=== PATIENT | male | born 1960 | race Hispanic/Latino ===

== ENCOUNTER 2016-08-31 12:56 | Emergency (ER) | payer SELFPAY ==
[2016-08-31 13:23] VITALS: TEMP 98.2
[2016-08-31 14:00] VITALS: BMI 24.3
[2016-08-31] MEDS ORDERED: Morphine 4 mg/ml ISec IVP STA (14:24)
[2016-08-31 15:25] LABS: ADD MANUAL DIFF? NO
--- NOTE | 2016-08-31 15:28 | RAD ---
HISTORY: cough COMPARISON: No prior. FINDINGS: LUNGS: No active pulmonary disease. PLEURA: No significant pleural effusion identified, no pneumothorax apparent. CARDIOVASCULAR: Normal. OSSEOUS STRUCTURES: No significant abnormalities. VISUALIZED UPPER ABDOMEN: Normal. OTHER FINDINGS: None. IMPRESSION: No active disease.
[2016-08-31 15:38] LABS: BASO # 0.04 K/mm3 (0.0-2.0); BASO % 0.8 % (0.0-3.0); EOS # 0.1 (0.0-0.7); EOS % 1.1 % (1.5-5.0); GRAN # 3.13 (1.4-6.5); GRAN % 59.2 % (50.0-68.0); HEMATOCRIT 41.8 % (42.0-52.0); LYMPH # 1.8 (1.2-3.4); LYMPH % 33.6 % (22.0-35.0); MEAN CELL VOLUME 106.9 fL (80.0-105.0); MEAN CORPUSCULAR HEMOGLOBIN 37.3 pg (25.0-35.0); MEAN CORPUSCULAR HGB CONC 34.9 g/dl (31.0-37.0); MEAN PLATELET VOLUME 9.7 fl (7.0-11.0); MONO # 0.3 (0.1-0.6); MONO % 5.3 % (1.0-6.0); PLATELET COUNT 139 10^3/uL (120.0-450.0); RED CELL DISTRIBUTION WIDTH 14.6 % (11.5-14.5); WHITE BLOOD COUNT 5.3 10^3/ul (4.5-11.0)
[2016-08-31 15:50] LABS: ALB/GLOB RATIO 1.2 (1.1-1.8); ALKALINE PHOSPHATASE 115 U/L (38-133); ALT/SGPT 42 U/L (7-56); AST/SGOT 37 U/L (15-59); BILIRUBIN,TOTAL 0.8 mg/dL (0.2-1.3); BLOOD UREA NITROGEN 12 mg/dL (7-21); CALCIUM 9.1 mg/dL (8.4-10.5); CARBON DIOXIDE 29 mmol/L (21-33); CHLORIDE 102 mmol/L (98-107); GFR AFRICAN-AMERICAN > 60; GLUCOSE,RANDOM 97 mg/dL (70-110); MAGNESIUM 2.4 mg/dL (1.7-2.2); SODIUM 143 mmol/L (132-148); TOTAL PROTEIN 7.7 g/dL (5.8-8.3)
[2016-08-31 16:14] LABS: TROPONIN I < 0.01 ng/mL
--- NOTE | 2016-08-31 16:46 | ED PDOC ---
Arrival/HPI - General Chief Complaint: Back Pain Time Seen by Provider: 08/31/16 13:14 Historian: Patient - History of Present Illness Narrative History of Present Illness (Text): 08/31/16 18:28 56 year old male with a past medical history that includes chronic back pain, herniated discs, presents with sudden onset of shooting pain from his left back radiating to his left chest while at work that "took his breath away." No fever , cough, shortness of breath at this time. No bowel or urinary dysfunction. No saddle anesthesia. Time/Duration: 24 hours Symptom Onset: Sudden Symptom Course: Unchanged Modifying Factors (Text): None Associated Symptoms (Text): None Past Medical History - Provider Review Nursing Documentation Reviewed: Yes - Infectious Disease Hx of Infectious Diseases: None - Tetanus Immunization Tetanus Immunization: Up to Date - Cardiac Hx Hypertension: Yes - Musculoskeletal/Rheumatological Hx Back Pain: Yes Hx Gout: Yes - Psychiatric Hx Depression: No Hx Emotional Abuse: No Hx Physical Abuse: No Hx Substance Use: No - Surgical History Other/Comment: rt knee surgery - Anesthesia Hx Anesthesia: Yes Hx Anesthesia Reactions: No Hx Malignant Hyperthermia: No - Suicidal Assessment Feels Threatened In Home Enviroment: No Family/Social History - Physician Review Nursing Documentation Reviewed: Yes Family/Social History: Unknown Family HX Smoking Status: Heavy Smoker > 10 Cigarettes Daily Hx Alcohol Use: Yes Hx Substance Use: No Hx Substance Use Treatment: No Allergies/Home Meds Allergies/Adverse Reactions: Allergies No Known Allergies Allergy (Verified 11/14/11 13:20) Home Medications: Home Meds Medication Instructions Recorded Confirmed Acetaminophen/Oxycodone Hydr 1 tab PO PRN 11/14/11 05/15/14 [APAP/Oxycodone 325 mg-5 mg] Ibuprofen 800 mg PO PRN 11/14/11 05/15/14 Review of Systems - Physician Review All systems were reviewed & negative as marked: Yes - Review of Systems Constitutional: absent: Fevers Respiratory: absent: SOB, Cough Gastrointestinal: absent: Stool Changes Genitourinary Male: absent: Urinary Output Changes Musculoskeletal: Back Pain Physical Exam Vital Signs Reviewed: Yes Vital Signs Temp Pulse Resp BP Pulse Ox 08/31/16 18:36 76 17 120/75 97 08/31/16 17:45 75 18 118/74 96 08/31/16 16:13 79 18 121/75 96 08/31/16 13:22 98.2 F 83 18 123/77 96 08/31/16 13:15 98 F 77 12 113/75 95 Temperature: Afebrile Blood Pressure: Normal Pulse: Regular Respiratory Rate: Normal Appearance: Positive for: Well-Appearing, Non-Toxic, Uncomfortable Pain Distress: Mild Mental Status: Positive for: Alert and Oriented X 3 - Systems Exam Head: Present: Atraumatic, Normocephalic Pupils: Present: PERRL Extroacular Muscles: Present: EOMI Conjunctiva: Present: Normal Mouth: Present: Moist Mucous Membranes Neck: Present: Normal Range of Motion Respiratory/Chest: Present: Clear to Auscultation, Good Air Exchange. No: Respiratory Distress, Accessory Muscle Use Cardiovascular: Present: Regular Rate and Rhythm, Normal S1, S2. No: Murmurs Abdomen: Present: Normal Bowel Sounds. No: Tenderness, Distention, Peritoneal Signs Back: Present: Other (Diffuse tenderness to left back. (+) Hypertonicity. Midline surgical scar well healed in L2-L4 area.) Upper Extremity: Present: Normal Inspection. No: Cyanosis, Edema Lower Extremity: Present: Normal Inspection. No: Edema Neurological: Present: GCS=15, CN II-XII Intact, Speech Normal Skin: Present: Warm, Dry, Normal Color. No: Rashes Psychiatric: Present: Alert, Oriented x 3, Normal Insight, Normal Concentration Medical Decision Making ED Course and Treatment: Impression: 56 year old male with a past medical history that includes chronic back pain, herniated discs, presents with sudden onset of shooting pain from his left back radiating to his left chest while at work that "took his breath away." Differential Diagnosis include but are not limited to: Chronic back pain Plan: -- MRI l-spine, EKG -- Valium, Morphine -- Reassess and disposition Progress Notes: EXAM: MR Lumbar Spine Without Intravenous Contrast FINDINGS: Vertebrae: Unremarkable. No acute fracture. Marrow: There is no evidence of abnormal bone marrow signal intensity to suggest contusion or occult fracture. Marrow signal is slightly heterogeneous of uncertain etiology. This abnormality may be related to marrow replacement from increased hematopoietic activity. Spinal cord: The conus medullaris is normal. Soft tissues: Unremarkable. DISCS/SPINAL CANAL/NEURAL FORAMINA: L1-L2: Modic type III changes. Diffuse posterior disc bulge and disc desiccation. No stenosis. L2-L3: Mild facet hypertrophy and ligamentum flavum thickening, mild diffuse posterior bulge, no stenosis. L3-L4: Secondary to combination of facet disease, ligamentum flavum thickening, and degenerative disc disease, there is moderate to severe spinal stenosis seen at this level, the cauda equina nerve roots are compressed, and there AP diameter thecal sac is 6.5 mm. There is marked bilateral lateral recess narrowing seen. Small synovial cyst is seen involving the left articular facet measuring approximately 3.8 mm. Marked bilateral foraminal stenosis. L4-L5: L4-5: Secondary to combination of facet disease, ligamentum flavum thickening, and degenerative disc disease, there is mild to moderate spinal stenosis seen at this level. L5-S1: No significant abnormalities. No stenosis. IMPRESSION: Multilevel degenerative disc disease and facet disease is present. This is causing multilevel foraminal stenosis most pronounced at L3-L4. There is multilevel facet disease in connection with disc disease, causing marked spinal stenosis at multiple levels but most pronounced at L3-L4, where the lateral recess narrowing is present, and moderate to severe spinal stenosis is seen. Chronic endplate reactive marrow changes Modic type III involving proximal L- spine. No acute fractures or destructive changes of the bones seen. Dictated and Authenticated by: Gelacio Knight MD 08/31/2016 5:38 PM Eastern Time ([place] & [place]) 08/31/16 18:15 Reviewed MRI findings with patient. Patient states he feels better. Will discharge home with Valium. I have discussed the results and plan with the patient, who expresses understanding. Patient given the opportunity to ask question, all questions were answered and there is agreement with the plan to discharge the patient home. Patient is stable for discharge. Patient was instructed to follow up with physician/clinic in 2-3 days or return if symptoms persist/worsen or new concerning symptoms arise. - Lab Interpretations Lab Results: 08/31/16 15:10 08/31/16 15:10 Lab Results 08/31/16 15:10: Sodium 143, Potassium 5.0, Chloride 102, Carbon Dioxide 29, Anion Gap 17, BUN 12, Creatinine 0.9, Est GFR ( Amer) > 60, Est GFR (Non- Af Amer) > 60, Random Glucose 97, Calcium 9.1, Magnesium 2.4 H, Total Bilirubin 0.8, AST 37, ALT 42, Alkaline Phosphatase 115, Lactate Dehydrogenase 473, Total Creatine Kinase 66, Troponin I < 0.01, Total Protein 7.7, Albumin 4.2, Globulin 3.4, Albumin/Globulin Ratio 1.2 08/31/16 15:10: WBC 5.3, RBC 3.91, Hgb 14.6, Hct 41.8 L, MCV 106.9 H, MCH 37.3 H , MCHC 34.9, RDW 14.6 H, Plt Count 139, MPV 9.7, Gran % 59.2, Lymph % (Auto) 33.6, Rooks % (Auto) 5.3, Eos % (Auto) 1.1 L, Baso % (Auto) 0.8, Gran # 3.13, Lymph # 1.8, Rooks # 0.3, Eos # 0.1, Baso # 0.04 - RAD Interpretation Radiology Orders: 08/31/16 14:23 CHEST PORTABLE [RAD] Stat 08/31/16 14:41 SPINAL CANAL LUMBAR W/O CONT [MRI] Stat Functional Analyst: Literary Writer - Medication Orders Current Medication Orders: Discontinued Medications Diazepam (Valium) 5 mg PO STAT STA PRN Reason: Protocol Stop: 08/31/16 14:27 Last Admin: 08/31/16 15:15 Dose: 5 mg Morphine Sulfate (Morphine) 4 mg IVP STAT STA Stop: 08/31/16 14:25 Last Admin: 08/31/16 15:15 Dose: 4 mg Re-Assess: ADARSH Pain Assessment Document 08/31/16 16:15 SF (Rec: 08/31/16 18:36 SF [facility] [id number]) Pain Reassessment Is this a pain reassessment? Yes Presence of Pain Presence of Pain No Pain Scale Used Pain Scale Used Numeric Oxycodone/Acetaminophen (Percocet 5/325 Mg Tab) Confirm Administered Dose 1 tab .ROUTE .STK-MED ONE Stop: 08/31/16 17:04 - Scribe Statement The provider has reviewed the documentation as recorded by the Birgit Hilliard Provider Scribe Attestation: All medical record entries made by the Scribe were at my direction and personally dictated by me. I have reviewed the chart and agree that the record accurately reflects my personal performance of the history, physical exam, medical decision making, and the department course for this patient. I have also personally directed, reviewed, and agree with the discharge instructions and disposition. Disposition/Present on Arrival - Present on Arrival Any Indicators Present on Arrival: No History of DVT/PE: No History of Uncontrolled Diabetes: No Urinary Catheter: No History of Decub. Ulcer: No History Surgical Site Infection Following: None - Disposition Have Diagnosis and Disposition been Completed?: Yes Diagnosis: Back pain Disposition: HOME/ ROUTINE Disposition Time: 16:30 Condition: IMPROVED Discharge Instructions (ExitCare): Chronic Back Pain (ED) Additional Instructions: Thank you for letting us take care of you today. Your provider was Dr. Beasley. You were treated for chronic back pain. The emergency medical care you received today was directed at your acute symptoms. If you were prescribed any medication, please fill it and take as directed. It may take several days for your symptoms to resolve. Return to the Emergency Department if your symptoms worsen, do not improve, or if you have any other problems. Please contact your doctor or call one of the physicians/clinics you have been referred to that are listed on the Patient Visit Information form that is included in your discharge packet. Bring any paperwork you were given at discharge with you along with any medications you are taking to your follow up visit. Our treatment cannot replace ongoing medical care by a primary care provider (PCP) outside of the emergency department. Thank you for allowing the [facility] team to be part of your care today. Follow up with your doctor in 2-3 days for re-evaluation. Prescriptions: diaZEpam [Valium] 5 mg PO Q6 PRN #15 tab PRN Reason: muscle spasm Referrals: [facility] Anne Cooney, [Family Provider] - Follow up with primary
[2016-08-31] MEDS ORDERED: Oxycodone/Acetaminophen 5/325 mg Tab ONE (17:03)
[2016-08-31 18:36] VITALS: BP 120/75; PULSE 76; RESP 17; O2SAT 97
--- NOTE | 2016-09-01 09:56 | MRI ---
PROCEDURE: MR LUMBAR SPINE WITHOUT CONTRAST HISTORY: h/o disc herniation; s/p fusion COMPARISON: None available. TECHNIQUE: Multiecho multiplanar sequences were performed through the lumbar spine without the use of intravenous contrast. FINDINGS: Normal lumbar lordosis. Vertebral body heights are preserved. Marrow signal unremarkable. Conus medullaris unremarkable at the level of Paraspinal soft tissues are unremarkable. T12-L1: No disc herniation, spinal canal stenosis or neural foraminal narrowing. L1-2: Severe disc degeneration with loss of disc height. Chronic endplate reactive marrow changes L2-3: Mild disc bulge L3-4: There is a moderate disc bulge and facet arthropathy. This results in severe central canal stenosis. There is a metallic fusion device between the spinous process ease of L3 and L4. Severe foraminal stenosis L4-5: No disc herniation, spinal canal stenosis or neural foraminal narrowing. L5-S1: No disc herniation, spinal canal stenosis or neural foraminal narrowing. OTHER FINDINGS: The report concurs with the preliminary [facility] report IMPRESSION: Severe spinal stenosis and foraminal stenosis at L3-4.
--- NOTE | 2016-09-01 13:10 | CARD ---
APPROVED REPORT EKG Measurement Heart [id number] <Conclusion> Normal sinus rhythm Right bundle branch block Possible IMI, age unknown
== END 2016-08-31 18:37 | disposition home or self-care (01) ==
LOC: ED 12:56
DX: M54.9 Dorsalgia, unspecified (principal); I10 Essential (primary) hypertension
CPT/HCPCS: 71010; 72148; 80053; 82550; 83615; 83735; 84484; 85025; 93005; 96374; 99285; J2270

== ENCOUNTER 2017-06-04 20:24 | Emergency (ER) | payer OTHER ==
[2017-06-04 20:26] VITALS: BMI 25.7
== END 2017-06-04 21:02 | disposition left against medical advice (07) ==
LOC: ED 20:24
DX: Z02.89 Encounter for other administrative examinations (principal); R06.02 Shortness of breath